=== PATIENT | female | born 1985 | race Caucasian/White ===

== ENCOUNTER 2016-04-07 | Emergency (ER) | payer OTHER | END 2016-04-07 14:15 | disposition home or self-care (01) ==

== ENCOUNTER 2016-10-20 14:18 | Emergency (ER) | payer OTHER ==
[2016-10-20 14:36] VITALS: BP 152/88
--- NOTE | 2016-10-20 14:37 | ED Physician Documentation ---
History of Present Illness - Stated complaint Stated Complaint: P/O INCISION OOZ - Chief complaint Chief Complaint: General - History obtained from History obtained from: Patient, Family - History of Present Illness Timing: Today Pain level max: 0 Pain level now: 0 Improved by: nothing Worsened by: nothing - Additonal information Additional information: patient is approx 1 week s/p . Today noted a small amount of white drainage from the wound. No fevers. No redness. 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 - Present Medications Home Medications: Ambulatory Orders Medication Instructions Recorded Confirmed Ibuprofen [Motrin] 800 mg pe PO PRN PRN 10/20/16 10/20/16 Loratadine [Claritin] 10 mg PO DAILY 10/20/16 10/20/16 Metoprolol Tartrate 100 mg pe PO DAILY 10/20/16 10/20/16 methIMAzole [Tapazole] 5 mg PO DAILY 10/20/16 10/20/16 oxyCODONE/ACET 5/325 [Percocet 5 1 tab PO PRN PRN 10/20/16 10/20/16 mg/325 mg] - Allergies Allergies/Adverse Reactions: Allergies Allergy/AdvReac Type Severity Reaction Status Date / Time No Known Drug Allergies Allergy Verified 05/28/15 09:05 - Social History Does the pt smoke?: No Smoking Status: Never smoker Does the pt drink ETOH?: No Does the pt have substance abuse?: No - Immunizations Immunizations are current?: Yes PD ED PE NORMAL - Vitals Vital signs reviewed: Yes - General General: Alert and oriented X 3, No acute distress - HEENT HEENT: Moist mucous membranes - Neck Neck: Supple, no meningeal sign - Cardiac Cardiac: RRR - Respiratory Respiratory: No respiratory distress, Clear bilaterally - Abdomen Abdomen: Soft, Non tender, Non distended, Other (well healing incision, C/D/I. No signs of infection. No drainage.) - Derm Derm: Warm and dry - Neuro Neuro: Alert and oriented X 3 - Psych Psych: Normal mood, Normal affect Results - Vitals Vitals: Vital Signs - 24 hr 10/20/16 14:28 Temperature 36.6 C Heart Rate 63 Respiratory 16 Rate Blood Pressure 152/88 H O2 Saturation 97 Oxygen O2 Source Room air PD MEDICAL DECISION MAKING - ED course Complexity details: considered differential, d/w patient, d/w family, d/w presales consultant ED course: Patient is a 31-year-old female who is approximately 1 week status post a C- section at the [facility]. Called L&D today as she was concerned about her wound and was told to come here for evaluation. Does not have any evidence of infection on examination today. Normal vital signs. No fevers. Discussed the case with Dr. Duggan, OB on-call for [facility] and she will see them in the office. Patient counseled regarding signs and symptoms for which I believe and urgent re -evaluation would be necessary. Patient with good understanding of and agreement to plan and is comfortable going home at this time This document was made in part using voice recognition software. While efforts are made to proofread this document, sound alike and grammatical errors may occur. Departure - Departure Disposition: 01 Home, Self Care Clinical Impression: Visit for wound check Condition: Good Instructions: ED Wound Check Post Op No Infec Follow-Up: Santa Duggan MD [Provider Admit Priv/Credential] - 10/22/16 (Call for an appointment) Comments: You can call Dr. Duggan this weekend directly if you have further concerns . Otherwise call the office on Friday for a follow up.
== END 2016-10-20 14:51 | disposition home or self-care (01) ==
LOC: ED 14:18
DX: O90.89 Other complications of the puerperium, not elsewhere classified (principal); Z48.89 Encounter for other specified surgical aftercare
CPT/HCPCS: 99282; 99283

== ENCOUNTER 2016-11-03 11:13 | Emergency (ER) | payer OTHER ==
[2016-11-03 12:10] LABS: BILIRUBIN,URINE NEGATIVE (NEGATIVE)
[2016-11-03 12:13] LABS: UA w/ MICROSCOPIC CHARGE YES
[2016-11-03 12:14] LABS: HCG UR QUAL NEGATIVE
[2016-11-03 12:31] LABS: UR CULTURE IF IND INDICATED; WBC,URINE 0-3 /HPF (0-5)
--- NOTE | 2016-11-03 12:47 | ED Physician Documentation ---
PD HPI ABD PAIN - Stated complaint Stated Complaint: LOWER R SIDE PX/ - Chief complaint Chief Complaint: Abd Pain - History obtained from History obtained from: Patient - History of Present Illness Timing - onset: Last night Timing - duration: Hours (12) Timing - details: Gradual onset, Still present, Waxing and waning Quality: Cramping, Aching, Pain Location: RLQ, Suprapubic Radiation: No: Right flank Improved by: No: Eating, Laying still Worsened by: Moving, Palpation. No: Eating Associated symptoms: Vaginal bleeding (mild still vaginal blood/mucous 3 weeks c-sec, with healing wound.). No: Fever, Nausea, Vomiting, Diarrhea, Dysuria Similar symptoms before: Has not had sx before Recently seen: Other (3 weeks c-sec without complications.) Review of Systems Constitutional: denies: Fever, Chills Nose: denies: Rhinorrhea / runny nose, Congestion Throat: denies: Sore throat Respiratory: denies: Cough GI: reports: Abdominal Pain. denies: Nausea, Vomiting, Diarrhea : reports: Vaginal bleeding (tapering since delivery, with slight blood/ mucous c/w ). 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 - Present Medications Home Medications: Ambulatory Orders Medication Instructions Recorded Confirmed Loratadine [Claritin] 10 mg PO DAILY 10/20/16 10/20/16 Metoprolol Tartrate 100 mg pe PO DAILY 10/20/16 10/20/16 methIMAzole [Tapazole] 5 mg PO DAILY 10/20/16 10/20/16 Cephalexin [Keflex] 500 mg PO TID #15 capsule 11/03/16 Naproxen 375 mg PO BID #20 tablet 11/03/16 Ondansetron Odt [Zofran] 4 mg TL Q6H PRN #15 tablet 11/03/16 Tramadol HCl 50 mg PO Q6H PRN #20 tablet 11/03/16 - Allergies Allergies/Adverse Reactions: Allergies Allergy/AdvReac Type Severity Reaction Status Date / Time No Known Drug Allergies Allergy Verified 05/28/15 09:05 - Social History Does the pt smoke?: No Smoking Status: Never smoker Does the pt drink ETOH?: No Does the pt have substance abuse?: No - Immunizations Immunizations are current?: Yes PD ED PE NORMAL - Vitals Vital signs reviewed: Yes - General General: Alert and oriented X 3, No acute distress, Well developed/nourished - HEENT HEENT: Pharynx benign - Neck Neck: Supple, no meningeal sign, No adenopathy - Cardiac Cardiac: RRR, No murmur - Respiratory Respiratory: Clear bilaterally - Abdomen Abdomen: Normal bowel sounds, Soft, Non distended, No organomegaly, Other ( tender suprapubic and RLQ without guarding, percussion nor rebound tenderness. ) - Female Female : Deferred - Rectal Rectal: Deferred - Back Back: No CVA TTP - Derm Derm: Normal color, Warm and dry, No rash - Extremities Extremities: No deformity, No tenderness to palpate - Neuro Neuro: Alert and oriented X 3, No motor deficit, Normal speech Results - Vitals Vitals: Oxygen O2 Source Room air - Labs Labs: Microbiology 11/03/16 11:32 Urine Culture - Final Urine,Clean Catch 10-50,000 COLONIES/ML Polymicrobial growth including potential pathogens. This is suggestive of skin or other contamination. Laboratory Tests 11/03/16 11/03/16 11/03/16 11:32 11:32 13:25 WBC 9.7 RBC 5.02 Hgb 14.2 Hct 42.1 MCV 83.8 MCH 28.3 MCHC 33.8 RDW 13.9 Plt Count 360 MPV 6.7 L Neut # 5.8 Lymph # 3.0 [place] # 0.7 Eos # 0.1 Baso # 0.0 Absolute Nucleated RBC 0.01 Nucleated RBCs 0.1 Urine Color YELLOW Urine Clarity CLEAR Urine pH 6.0 Ur Specific [place] <=1.005 <=1.005 Urine Protein NEGATIVE Urine Glucose (UA) NEGATIVE Urine Ketones NEGATIVE Urine Occult Blood MODERATE H Urine Nitrite NEGATIVE Urine Bilirubin NEGATIVE Urine Urobilinogen 0.2 (NORMAL) Ur Leukocyte Esterase TRACE H Urine RBC 0-5 Urine WBC 0-3 Ur Squamous Epith Cells RARE Squamous Urine Bacteria Rare Ur Microscopic Review INDICATED Urine Culture Comments INDICATED Urine HCG, Qual NEGATIVE PD MEDICAL DECISION MAKING - ED course Complexity details: reviewed results, re-evaluated patient (mild tenderness RLQ without guarding nor percussion. WBC is okay. U/S did not show ovarian cause for pain and right kidney is normal size. Appendix not seen on U/S. We talked about possible CT versus expectant watching and shared decision was to hold off on CT for now. ), considered differential, d/w patient Departure - Departure Disposition: 01 Home, Self Care Clinical Impression: Abdominal pain Qualifiers: Abdominal location: lower abdomen, unspecified Qualified Code(s): R10.30 - Lower abdominal pain, unspecified UTI (urinary tract infection) Qualifiers: Urinary tract infection type: acute cystitis Hematuria presence: with hematuria Qualified Code(s): N30.01 - Acute cystitis with hematuria Condition: Stable Record reviewed to determine appropriate education?: Yes Instructions: ED UTI Cystitis Female, ED Abdominal Pain Appendx Poss Follow-Up: Alejandrina Beebe ARNP [Primary Care Provider] - Prescriptions: Cephalexin [Keflex] 500 mg PO TID #15 capsule Naproxen 375 mg PO BID #20 tablet Tramadol HCl 50 mg PO Q6H PRN #20 tablet PRN Reason: Pain Ondansetron Odt [Zofran] 4 mg TL Q6H PRN #15 tablet PRN Reason: Nausea / Vomiting Comments: There is some sign of bladder infection on your urine test and we will treat that with antibiotics. The belly pain may relate to that. Otherwise we will try some anti-inflammatories naproxen twice daily and add Tylenol or tramadol if needed for pain. If the pain persists or increases or he develop nausea vomiting or fevers, then return for further assessment. This could include a CT scan to look for appendix or other problems. The appendix itself was not visualized well on the ultrasound. However there is no fever or elevated white count and so giving it a little time to see if this improves is reasonable. Discharge Date/Time: 11/03/16 16:17
[2016-11-03 13:32] LABS: BASOPHILS % (AUTO) 0.5 %; EOSINOPHILS # (AUTO) 0.1 10^3/uL (0.0-0.7); EOSINOPHILS % (AUTO) 1.3 %; HCT - HEMATOCRIT 42.1 % (37.0-47.0); HGB - HEMOGLOBIN 14.2 g/dL (12.0-16.0); MEAN CORPUSCULAR HEMOGLOBIN 28.3 pg (27.0-31.0); MEAN CORPUSCULAR HGB CONC 33.8 g/dL (32.0-36.0); MEAN CORPUSCULAR VOLUME 83.8 fL (81.0-99.0); MEAN PLATELET VOLUME 6.7 fL (7.9-10.8); MONOCYTES # (AUTO) 0.7 10^3/uL (0.0-1.0); MONOCYTES % (AUTO) 7.4 %; NEUTROPHILS # (AUTO) 5.8 10^3/uL (1.5-6.6); NEUTROPHILS % (AUTO) 59.8 %; NUCLEATED RED BLOOD CELLS AUTO 0.1 /100WBC; RED BLOOD COUNT 5.02 10^6/uL (4.20-5.40); RED CELL DISTRIBUTION WIDTH 13.9 % (12.0-15.0); UNCORRECTED WHITE BLOOD COUNT 9.7 x10^3/uL; WHITE BLOOD COUNT 9.7 x10^3/uL (4.8-10.8)
--- NOTE | 2016-11-03 15:02 | Ultrasound Preliminary Report ---
Exam: US Abdomen Limited IMPRESSION: Appendix not visualized. No free fluid seen in the right lower quadrant. [facility] SITE ID: [id number]
--- NOTE | 2016-11-03 15:04 | Ultrasound Preliminary Report ---
Exam: US Pelvic Non OB w/Doppler Ltd IMPRESSION: Normal pelvic ultrasound. [facility] SITE ID: [id number]
--- NOTE | 2016-11-03 15:05 | Ultrasound Report ---
EXAM: Limited ABDOMINAL ultrasound EXAM DATE: 11/03/2016 02:21 PM. CLINICAL HISTORY: Right lower quadrant abdominal pain COMPARISON: None. TECHNIQUE: Real-time scanning was performed of the right lower quadrant with static images obtained. FINDINGS: APPENDIX: Not seen ASSOCIATED FINDINGS: Lymph Nodes Seen: None Free Fluid/Complex Fluid Seen: None Thickened Bowel Wall Seen: No Other: Limited images of the right kidney are unremarkable and without hydronephrosis. IMPRESSION: Appendix not visualized. No free fluid seen in the right lower quadrant. [facility] Referring Provider Line: [phone] SITE ID: [id number]
--- NOTE | 2016-11-03 15:07 | Ultrasound Report ---
EXAM: PELVIC ULTRASOUND EXAM DATE: 11/03/2016 02:03 PM. CLINICAL HISTORY: RLQ abd pain started last night; 3 wk . COMPARISON: None. TECHNIQUE: Realtime transabdominal pelvic scan performed to identify the uterus and adnexa and as an overview of other pelvic structures with static image documentation. FINDINGS: Uterus: 12.5 x 4.9 x 7.8 cm, volume 250 cc. Anteverted position. Normal overall size and echotexture. Masses: None. Endometrium: 7.6 mm. Normal. Cervix: Unremarkable. Right Ovary: 2.3 x 1.5 x 2.7 cm, volume 4.9 cc. Normal echotexture and blood flow. Left Ovary: 4.2 x 1.8 x 3.6 cm, volume 14.2 cc. Normal echotexture and blood flow. Free Fluid: None. Other: None. IMPRESSION: Normal pelvic ultrasound. [facility] Referring Provider Line: [phone] SITE ID: [id number]
[2016-11-03 15:39] VITALS: BP 150/89
[2016-11-03] MEDS ORDERED: CEPHALEXIN 250 MG CAPSULE PO STA (15:50)
[2016-11-03] MEDS ORDERED: IBUPROFEN 600 MG TABLET PO STA (15:50)
[2016-11-03] MEDS ORDERED: ACETAMINOPHEN 325 MG TABLET PO STA (15:51)
[2016-11-03] MEDS ORDERED: CEPHALEXIN 250 MG CAPSULE PO ONE (16:14)
[2016-11-03] MEDS ORDERED: ACETAMINOPHEN 325 MG TABLET PO ONE (16:14)
[2016-11-03] MEDS ORDERED: IBUPROFEN 600 MG TABLET PO ONE (16:14)
== END 2016-11-03 16:17 | disposition home or self-care (01) ==
LOC: ED 11:13
DX: O86.22 Infection of bladder following delivery (principal); R10.31 Right lower quadrant pain
CPT/HCPCS: 36415; 76705; 76856; 81001; 81025; 85025; 87086; 93976; 99283; A9270; 81003

== ENCOUNTER 2016-11-05 18:11 | Emergency (ER) | payer OTHER ==
[2016-11-05 19:47] LABS: BASOPHILS % (AUTO) 0.1 %; EOSINOPHILS % (AUTO) 0.2 %; HCT - HEMATOCRIT 39.4 % (37.0-47.0); HGB - HEMOGLOBIN 13.6 g/dL (12.0-16.0); LYMPHOCYTES # (AUTO) 2.5 10^3/uL (1.5-3.5); LYMPHOCYTES % (AUTO) 21.1 %; MEAN CORPUSCULAR HGB CONC 34.5 g/dL (32.0-36.0); MEAN PLATELET VOLUME 6.9 fL (7.9-10.8); MONOCYTES # (AUTO) 0.6 10^3/uL (0.0-1.0); MONOCYTES % (AUTO) 4.9 %; NEUTROPHILS # (AUTO) 8.8 10^3/uL (1.5-6.6); NEUTROPHILS % (AUTO) 73.7 %; RED BLOOD COUNT 4.69 10^6/uL (4.20-5.40); RED CELL DISTRIBUTION WIDTH 13.7 % (12.0-15.0)
[2016-11-05 19:49] LABS: BILIRUBIN,URINE NEGATIVE (NEGATIVE); PH,URINE 6.5 PH (5.0-7.5)
[2016-11-05 19:51] LABS: UA w/ MICROSCOPIC CHARGE YES
[2016-11-05 19:58] LABS: UR CULTURE IF IND INDICATED
[2016-11-05 20:04] LABS: BILIRUBIN,TOTAL 0.5 mg/dL (0.2-1.0); CALCIUM 9.1 mg/dL (8.5-10.3); CREATININE 0.5 mg/dL (0.4-1.0); POTASSIUM 3.7 mmol/L (3.5-5.0); TOTAL PROTEIN 8.1 g/dL (6.7-8.2)
[2016-11-05] MEDS ORDERED: IOPAMIDOL-300 100 ML VIAL IVP ONE (21:00)
--- NOTE | 2016-11-05 21:59 | ED Physician Documentation ---
PD HPI ABD PAIN - Stated complaint Stated Complaint: HIVES,DIARRHEA,PX RT SIDE - Chief complaint Chief Complaint: Heent - History obtained from History obtained from: Patient, Family - History of Present Illness Timing - onset: How many days ago (2) Timing - duration: Days (2) Timing - details: Gradual onset Pain level max: 6 Pain level now: 6 Quality: Aching, Pain Location: RLQ Radiation: Other (non-radiating) Improved by: Laying still Worsened by: Moving, Palpation Associated symptoms: Diarrhea. No: Fever, Nausea, Vomiting, Hematemesis, Constipation, Melena, Hematochezia, Dysuria, Hematuria, Chest pain, Dizzy, Near syncope / syncope, Loss of appetite, Weight loss, Vaginal bleeding, Vaginal dc Similar symptoms before: Has not had sx before Recently seen: Emergency Dept (2 days ago, dx with UTI. Placed on keflex and states noticed hives to hands, feet, and back today. Improved now. No dyspnea.) , Surgery ( 3 weeks ago) Review of Systems Ten Systems: 10 systems reviewed and negative Constitutional: denies: Fever, Chills Ears: denies: Ear pain Nose: denies: Rhinorrhea / runny nose, Congestion Throat: denies: Sore throat Respiratory: denies: Cough GI: denies: Nausea, Vomiting, Diarrhea, Hematemesis, Bloody / black stool : denies: Dysuria, Frequency, Hesitancy, Now EGA Skin: reports: Rash (had hives earlier, now resolved) Musculoskeletal: denies: Neck pain, Back pain Neurologic: denies: Headache PD PAST MEDICAL HISTORY - Past Medical History Past Medical History: Yes Cardiovascular: Arrhythmia Respiratory: None Neuro: None Endocrine/Autoimmune: HyPERthyroidism, HyPOthyroidism GI: None 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 : None HEENT: None Psych: Depression, Anxiety Musculoskeletal: None Derm: None - Past Surgical History 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 - Present Medications Home Medications: Ambulatory Orders Medication Instructions Recorded Confirmed Loratadine [Claritin] 10 mg PO DAILY 10/20/16 10/20/16 Metoprolol Tartrate 100 mg pe PO DAILY 10/20/16 10/20/16 methIMAzole [Tapazole] 5 mg PO DAILY 10/20/16 10/20/16 Cephalexin [Keflex] 500 mg PO TID #15 capsule 11/03/16 Naproxen 375 mg PO BID #20 tablet 11/03/16 Ondansetron Odt [Zofran] 4 mg TL Q6H PRN #15 tablet 11/03/16 Tramadol HCl 50 mg PO Q6H PRN #20 tablet 11/03/16 - Allergies Allergies/Adverse Reactions: Allergies Allergy/AdvReac Type Severity Reaction Status Date / Time No Known Drug Allergies Allergy Verified 05/28/15 09:05 - Social History Does the pt smoke?: No Smoking Status: Never smoker Does the pt drink ETOH?: No Does the pt have substance abuse?: No - Immunizations Immunizations are current?: Yes PD ED PE NORMAL - Vitals Vital signs reviewed: Yes - General General: Alert and oriented X 3, No acute distress, Well developed/nourished - HEENT HEENT: PERRL, Moist mucous membranes - Neck Neck: Supple, no meningeal sign - Cardiac Cardiac: RRR, Strong equal pulses - Respiratory Respiratory: No respiratory distress, Clear bilaterally - Abdomen Abdomen: Soft, Non distended, Other (Tender to palpation right lower quadrant at McBurney's point. No rebound or guarding. Negative rovsing. Negative psoas. Negative obturator) - Derm Derm: Warm and dry - Neuro Neuro: Alert and oriented X 3 - Psych Psych: Normal mood, Normal affect Results - Vitals Vitals: Oxygen O2 Source Room air - Labs Labs: Microbiology 11/05/16 19:33 Urine Culture - Final Urine,Clean Catch No growth Laboratory Tests 11/05/16 11/05/16 11/05/16 19:33 19:33 19:33 WBC 12.0 H RBC 4.69 Hgb 13.6 Hct 39.4 MCV 84.0 MCH 29.0 MCHC 34.5 RDW 13.7 Plt Count 356 MPV 6.9 L Neut # 8.8 H Lymph # 2.5 [place] # 0.6 Eos # 0.0 Baso # 0.0 Absolute Nucleated RBC 0.00 Nucleated RBCs 0.0 Sodium 139 Potassium 3.7 Chloride 104 Carbon Dioxide 25 Anion Gap 10.0 BUN 11 Creatinine 0.5 Estimated GFR (MDRD) 142 Glucose 94 Calcium 9.1 Total Bilirubin 0.5 AST 15 ALT 20 Alkaline Phosphatase 77 Total Protein 8.1 Albumin 4.1 Globulin 4.0 Albumin/Globulin Ratio 1.0 Lipase 32 Urine Color YELLOW Urine Clarity CLEAR Urine pH 6.5 Ur Specific [place] 1.015 Urine Protein NEGATIVE Urine Glucose (UA) NEGATIVE Urine Ketones NEGATIVE Urine Occult Blood SMALL H Urine Nitrite NEGATIVE Urine Bilirubin NEGATIVE Urine Urobilinogen 0.2 (NORMAL) Ur Leukocyte Esterase TRACE H Urine RBC 0-5 Urine WBC 6-10 H Ur Squamous Epith Cells FEW Squamous Urine Bacteria None Seen Ur Microscopic Review INDICATED Urine Culture Comments INDICATED - Rads (name of study) CT abdomen pelvis Radiology: Prelim report reviewed, EMP read contemporaneously, See rad report ( Small amount of hemoperitoneum in the pelvis. This could be from a ruptured ovarian cyst. 2. Postsurgical changes of that was performed 2-3 weeks ago. Acute inflammation with the stranding at the anterior pelvis fat not excluded. No evidence for abscess. 3. Multiple bilateral renal calculi which are nonobstructing. No hydronephrosis, hydroureter or ureteral calculi. No bladder calculi. 4. The appendix appears within normal limits. 5. Otherwise, as above. ) PD MEDICAL DECISION MAKING - ED course Complexity details: reviewed results, re-evaluated patient, considered differential, d/w patient, d/w family ED course: Patient is a 31-year-old female presents to the emergency department with 2 days of right lower quadrant abdominal pain, gradually worsening, concern for appendicitis. Mildly elevated white blood cell count. CT scan reveals a normal appendix, but a small amount of hemoperitoneum in the pelvis, possible ruptured ovarian cyst? No evidence of abscess. Patient is very well-appearing , nontoxic. Afebrile. No UTI. Will stop the Keflex. Her culture was negative , will not restart another antibiotic. We will continue supportive care and see how she progresses over the next 2 days. She will return if she worsens or fails to improve as expected. Abdomen is soft, mildly tender in the right lower quadrant on serial exam. Patient counseled regarding signs and symptoms for which I believe and urgent re-evaluation would be necessary. Patient with good understanding of and agreement to plan and is comfortable going home at this time This document was made in part using voice recognition software. While efforts are made to proofread this document, sound alike and grammatical errors may occur. Departure - Departure Disposition: 01 Home, Self Care Clinical Impression: Abdominal pain Qualifiers: Abdominal location: right lower quadrant Qualified Code(s): R10.31 - Right lower quadrant pain Ovarian cyst Qualifiers: Laterality: right Qualified Code(s): N83.201 - Unspecified ovarian cyst, right side Condition: Good Instructions: ED Abdominal Pain Unkn Cause, ED Cyst Ovarian Follow-Up: Alejandrina Beebe ARNP [Primary Care Provider] - Within 1 week Comments: Return if you worsen. This should improve over the next few days. If your pain worsens, you develop fevers or vomiting, return immediately. Discharge Date/Time: 11/05/16 22:36
--- NOTE | 2016-11-05 22:10 | CT Preliminary Report ---
Exam: CT Abdomen/Pelvis W/ IMPRESSION: 1. Small amount of hemoperitoneum in the pelvis. This could be from a ruptured ovarian cyst. 2. Postsurgical changes of that was performed 2-3 weeks ago. Acute inflammation with the st randing at the anterior pelvis fat not excluded. No evidence for abscess. 3. Multiple bilateral renal calculi which are nonobstructing. No hydronephrosis, hydroureter or urete ral calculi. No bladder calculi. 4. The appendix appears within normal limits. 5. Otherwise, as above. [facility] The above findings were discussed with Dr. Cueva by Dr. Tanya Moreno at 22:04 hrs on 11/05/16. SITE ID: [id number]
--- NOTE | 2016-11-05 22:13 | CT Report ---
EXAM: CT ABDOMEN AND PELVIS EXAM DATE: 11/05/2016 09:04 PM. CLINICAL HISTORY: Right lower quadrant abdominal pain, IV only. 2-3 weeks ago COMPARISONS: Ultrasound 11/03/2016. TECHNIQUE: Routine helical CT imaging was performed through the abdomen and pelvis. IV contrast: 100 mL Isovue 300. Enteric contrast: No. Reconstructions: Coronal and sagittal. In accordance with CT protocol optimization, one or more of the following dose reduction techniques w ere utilized for this exam: automated exposure control, adjustment of mA and/or KV based on patient s ize, or use of iterative reconstructive technique. FINDINGS: Lung Bases: No acute findings. Multiple small nonspecific low densities are seen in the liver, too small to fully characterize. Live r contour appears within normal limits. Gallbladder and bile ducts appear within normal limits. Small focal area of increased density, appear s to be within the proximal duodenum. Pancreas: Unremarkable. Spleen: Within normal limits. Adrenals: Unremarkable. Kidneys: Multiple bilateral renal calculi, measuring 3-5 mm. No hydronephrosis. No ureteral calculi. No hydroureter. No abdominal aortic aneurysm. The superior mesenteric artery appears patent Anterior abdominal diastases at the wall measuring 11 cm with bowel extending up into the diastases. No evidence for bowel obstruction. Normal appendix. There appears to be a small amount of complex free fluid seen in the pelvis as seen with mild hemoper itoneum. The uterus and ovaries appear within normal limits by CT. The bladder appears unremarkable. Anteriorly in the pelvis, there is fat stranding, could be from the performed 2-3 weeks ago . Acute inflammation not excluded. No evidence for abscess. scar is noted. IMPRESSION: 1. Small amount of hemoperitoneum in the pelvis. This could be from a ruptured ovarian cyst. 2. Postsurgical changes of that was performed 2-3 weeks ago. Acute inflammation with the st randing at the anterior pelvis fat not excluded. No evidence for abscess. 3. Multiple bilateral renal calculi which are nonobstructing. No hydronephrosis, hydroureter or urete ral calculi. No bladder calculi. 4. The appendix appears within normal limits. 5. Otherwise, as above. [facility] The above findings were discussed with Dr. Cueva by Dr. Tanya Moreno at 22:04 hrs on 11/05/16. Referring Provider Line: [phone] SITE ID: [id number]
[2016-11-05 22:35] VITALS: BP 134/84
== END 2016-11-05 22:36 | disposition home or self-care (01) ==
LOC: ED 18:11
DX: R10.31 Right lower quadrant pain (principal); N83.201 Unspecified ovarian cyst, right side
CPT/HCPCS: 36415; 74177; 80053; 81001; 83690; 85025; 87086; 99283; 99284; Q9967; 81003